=== PATIENT | male | born 1990 | race Caucasian/White ===

== ENCOUNTER 2019-06-21 18:29 | Emergency (ER) | payer OTHER ==
[~2019-06-21] VITALS: Ht 182.8 cm; Wt 97.5 kg
== END 2019-06-21 18:52 ==
LOC: ED 18:29
DX: R10.31 Right lower quadrant pain (principal); R19.7 Diarrhea, unspecified; Z53.21 Procedure and treatment not carried out due to patient leaving prior to being seen by health care provider